=== PATIENT | female | born 1960 | race Caucasian/White ===

== ENCOUNTER → 2017-04-16 | Outpatient (CLI) | payer OTHER ==
[~2017-04-16] MED LIST: ARGI500C PO; ASTA4CAP PO; CARI350T PO; CETI10CA PO; CHOL100011 PO; DARI15TA3; DEXA4TAB PO; HYDR-3307 PO; KRIL500C; KRILL OIL PO; OMEP40CA3; OMEP40CA6 PO; OXYB5TAB7 PO; PRAS1TAB PO; PRAV10TA2 PO; PREG50CA PO; RANI300T PO; RANI300T3; UBID100C24 PO; UBIQ100C
[2017-04-16 13:03] LABS: EPI LOT# 5695218
[2017-04-16 13:06] LABS: HCT (PFA) 44.6 % (34.6-47.8); PLATELET (PFA) 253 x10^3/uL (130-400)
[2017-04-16 13:09] LABS: PATH.CAST-FLAG NOT PRESENT; SPERM-FLAG NOT PRESENT; SRC-FLAG NOT PRESENT; XTAL-FLAG NOT PRESENT; YLC-FLAG NOT PRESENT
[2017-04-16 13:23] LABS: ASPARTATE AMINO TRANSFERASE 31 U/L (15-37); BLOOD UREA NITROGEN 15 mg/dL (7-18)
[2017-04-16 13:28] LABS: HIV 1&2 ANTIBODY SCREEN Nonreactive (Nonreactive); HIV-1 p24 ANTIGEN Nonreactive (Nonreactive)
[2017-04-16 14:12] LABS: EPI CARTRIDGE 95 SECONDS (72-193)
[2017-04-17 09:26] LABS: HEPATITIS C VIRUS ANTIBODY Nonreactive (Nonreactive)
== END | disposition home or self-care (01) ==
LOC: STAR 12:05
PROVIDERS: ATTEND Orthopaedic Surgery Orthopaedic Surgery of the Spine
DX: Z01.811 Encounter for preprocedural respiratory examination (principal); M54.12 Radiculopathy, cervical region; M47.892 Other spondylosis, cervical region; R79.1 Abnormal coagulation profile
CPT/HCPCS: 36415; 71020; 80053; 80074; 81001; 85014; 85025; 85049; 85576; 85610; 85651; 85730; 86703; 87086; 87899; 93005; G0435

== ENCOUNTER → 2017-04-21 | Outpatient (CLI) | payer OTHER | END | disposition home or self-care (01) | LOC: STAR 16:14 | PROVIDERS: ATTEND Orthopaedic Surgery Orthopaedic Surgery of the Spine | DX: Z01.818 Encounter for other preprocedural examination (principal); M54.12 Radiculopathy, cervical region; M47.892 Other spondylosis, cervical region | CPT/HCPCS: 81003 ==

== ENCOUNTER 2017-04-28 06:51 | Inpatient (IN) | payer OTHER ==
[~2017-04-28] VITALS: Ht 170.2 cm; Wt 97.3 kg
[~2017-04-28 06:51] MED LIST changes: +BACITRACIN 50,000 UNIT ONE; +BUPIVACAINE/PF 0.25% ONE; +BUPIVACAINE/PF-EPI 0.5% 1:200K ONE; +LIDOCAINE/PF 1%, 30ML ONE; +THROMBIN 5,000 UNIT VIAL TP ONE
[2017-04-28] MEDS ORDERED: EPINEPHRINE 1 MG/ML, 1ML ONE (06:59)
[2017-04-28] MEDS ORDERED: LACTATED RINGERS 1,000 ML IV SCH (08:17)
[2017-04-28] MEDS ORDERED: FENTANYL PF 250 MCG/5ML ONE (08:38)
[2017-04-28] MEDS ORDERED: MIDAZOLAM 1 MG/ML, 2ML ONE (08:38)
[2017-04-28] MEDS ORDERED: SUFentanil 50 MCG/ML, 1ML ONE ×2 (08:38→10:05)
[2017-04-28 08:49] VITALS: BP 111/71
[2017-04-28] MEDS ORDERED: morphine SULFATE 10 MG/ML, 1ML IV PRN ×2 (12:00→14:00)
[2017-04-28] MEDS: FENTANYL PF 100 MCG/2ML IV PRN ×2 (12:00→12:20)
[2017-04-28] MEDS ORDERED: MEPERIDINE/PF 25MG/0.5ML IVPush PRN (12:00)
[2017-04-28] MEDS ORDERED: METOPROLOL 1 MG/ML, 5ML IV PRN (12:00)
[2017-04-28] MEDS ORDERED: hydrALAzine 20 MG/ML, 1ML IV PRN (12:00)
[2017-04-28] MEDS ORDERED: HYDROcodone/APAP 7.5-325MG/15ML UDC PO PRN (12:00)
[2017-04-28] MEDS ORDERED: PROMETHAZINE 25 MG/ML, 1ML IV PRN (12:00)
[2017-04-28] MEDS ORDERED: FENTANYL PF 100 MCG/2ML ONE (12:07)
[2017-04-28] MEDS ORDERED: HYDROcodone/APAP 7.5-325MG/15ML UDC ONE (12:07)
[2017-04-28] MEDS: DIAZEPAM 5 MG/ML, 2ML IV PRN ×2 (12:36→13:02)
[2017-04-28] MEDS ORDERED: ONDANSETRON 2MG/ML, 2ML ONE (14:00)
[2017-04-28] MEDS ORDERED: DIPHENHYDRAMINE 50 MG/ML, 1ML IVPush PRN (14:00)
[2017-04-28] MEDS ORDERED: DIAZEPAM 5 MG/ML, 2ML IV PRN (14:00)
[2017-04-28] MEDS ORDERED: HYDROcodone/APAP 10/325 MG TABLET PO PRN (14:00)
[2017-04-28] MEDS ORDERED: CEFAZOLIN 1,000 MG ONE (14:00)
[2017-04-28] MEDS ORDERED: DEXAMETHASONE 4 MG/ML, 1ML ONE (14:00)
[2017-04-28] MEDS ORDERED: LABETALOL 5MG/ML, 20ML IV PRN (14:00)
[2017-04-28] MEDS ORDERED: DIPHENHYDRAMINE 50 MG CAPSULE PO PRN (14:00)
[2017-04-28] MEDS ORDERED: SUCCINYLCHOLINE 20 MG/ML, 10ML ONE (14:00)
[2017-04-28] MEDS ORDERED: BISACODYL 10 MG SUPP PR PRN (14:00)
[2017-04-28] MEDS ORDERED: PROMETHAZINE 25 MG SUPP PR PRN (14:00)
[2017-04-28] MEDS ORDERED: PROPOFOL 10 MG/ML, 20ML ONE (14:00)
[2017-04-28] MEDS ORDERED: PROMETHAZINE 25 MG/ML, 1ML IM PRN (14:00)
[2017-04-28] MEDS ORDERED: DIPHENHYDRAMINE 50 MG/ML, 1ML IM PRN (14:00)
[2017-04-28] MEDS ORDERED: MAGNESIUM HYDROXIDE 8%, 30ML UDC PO PRN (14:00)
[2017-04-28] MEDS ORDERED: DIAZEPAM 5 MG TABLET PO PRN (14:00)
[2017-04-28] MEDS ORDERED: ROCURONIUM 10 MG/ML ONE (14:00)
[2017-04-28] MEDS: DEXAMETHASONE 4 MG/ML, 1ML IV SCH ×2 (14:19→20:18)
[2017-04-28] MEDS: D5%-0.9% NACL+KCL 20MEQ 1,000 ML IV SCH ×2 (14:19→22:36)
[2017-04-28] MEDS ORDERED: CEFAZOLIN PMX 1GM/50ML 50 ML IVPB SCH (16:00)
[2017-04-28 16:19] VITALS: BP 104/67
[2017-04-28] MEDS: HYDROcodone/APAP 10/325 MG TABLET PO PRN ×2 (17:33→21:59)
[2017-04-28] MEDS: CEFAZOLIN PMX 1GM/50ML 50 ML IVPB SCH (17:59)
[2017-04-28 19:14] VITALS: BP 100/66
[2017-04-28] MEDS: PREGABALIN 25 MG CAPSULE PO SCH (21:59)
[2017-04-29 00:22] VITALS: BP 96/62
[2017-04-29] MEDS: HYDROcodone/APAP 10/325 MG TABLET PO PRN ×3 (02:27→12:05)
[2017-04-29] MEDS: DEXAMETHASONE 4 MG/ML, 1ML IV SCH (02:27)
[2017-04-29] MEDS: CEFAZOLIN PMX 1GM/50ML 50 ML IVPB SCH (02:28)
[2017-04-29] MEDS: D5%-0.9% NACL+KCL 20MEQ 1,000 ML IV SCH (06:18)
[2017-04-29 07:52] VITALS: BP 115/62
[2017-04-29] MEDS: PREGABALIN 25 MG CAPSULE PO SCH (09:00)
[2017-04-29] MEDS ORDERED: SENNA/DOCUSATE TABLET PO SCH (09:00)
== END 2017-04-29 12:46 | disposition home or self-care (01) | DRG 473 ==
LOC: ORIP 06:51 → EDSTATUS 07:30 → 4NOR 13:35
PROVIDERS: ADMIT Orthopaedic Surgery Orthopaedic Surgery of the Spine; ATTEND Orthopaedic Surgery Orthopaedic Surgery of the Spine
PROC: 0RB30ZZ Excision of Cervical Vertebral Disc, Open Approach (ICD-10-PCS; 2017-04-28)
PROC: 0RG20K0 Fusion of 2 or more Cervical Vertebral Joints with Nonautologous Tissue Substitute, Anterior Approach, Anterior Column, Open Approach (ICD-10-PCS; principal; 2017-04-28 09:00)
DX: M48.02 Spinal stenosis, cervical region (principal); M47.22 Other spondylosis with radiculopathy, cervical region; G89.29 Other chronic pain; Z88.6 Allergy status to analgesic agent; Z88.0 Allergy status to penicillin; Z88.8 Allergy status to other drugs, medicaments and biological substances
CPT/HCPCS: 72040; C1713; J0171; J0690; J1100; J2250; J2405; J2704; J3010; J3360; J3490; C1762; J0330; J2270; J3480; J7120

== ENCOUNTER → 2018-02-06 | Outpatient (CLI) | payer OTHER ==
[~2018-02-06] MED LIST changes: -ARGI500C PO; +ARGI500C7 PO; -BACITRACIN 50,000 UNIT ONE; -BUPIVACAINE/PF 0.25% ONE; -BUPIVACAINE/PF-EPI 0.5% 1:200K ONE; -LIDOCAINE/PF 1%, 30ML ONE; -THROMBIN 5,000 UNIT VIAL TP ONE; -UBIQ100C; +UBIQ100C3
== END | disposition home or self-care (01) ==
LOC: CARD 12:39
PROVIDERS: ATTEND Neurological Surgery
DX: D32.0 Benign neoplasm of cerebral meninges (principal)
CPT/HCPCS: 95819